=== PATIENT | female | born 1990 ===

== ENCOUNTER 2024-10-19 23:17 | Emergency (ER) | payer OTHER ==
[~2024-10-19] VITALS: Ht 162.6 cm; Wt 59.4 kg
[2024-10-19] MEDS ORDERED: PRENATAL MULTI1 EAC5 (23:42)
[2024-10-19 23:43] LABS: BASOPHILS 0.7 % (0-2); EOSINOPHILS 0.1 % (0-6); HEMATOCRIT 36.8 % (35.0-50.0); HEMOGLOBIN 12.6 g/dL (12.0-18.0); LYMPHOCYTES 15.8 % (24-44); MCH 30.4 (27-36); MCHC 34.3 g/dl (30-36); MCV 88.7 fl (81-99); MONOCYTES 8.4 % (0-12); PLATELET COUNT 140 K/uL (140-440); RBC 4.15 M/ul (4.3-5.7); RDW 12.7 (10.5-15.0)
[2024-10-19] MEDS ORDERED: SODIUM CHLORIDE 0.9% 1,000 ML IV ONE (23:45)
[2024-10-20 00:01] LABS: ALBUMIN 4.1 g/dL (3.4-5.0); ALBUMIN/GLOBULIN RATIO 1.14 (1.1-2.4); ANION GAP 13.4 (7-21); BILIRUBIN, TOTAL 0.4 mg/dL (0.2-1.0); CALCIUM 8.9 mg/dL (8.5-10.1); CREATININE, SERUM 0.75 mg/dL (0.55-1.02); MAGNESIUM 1.6 mg/dL (1.8-2.4); POTASSIUM 3.4 mmol/L (3.5-5.1); PROTEIN, TOTAL 7.7 g/dL (6.4-8.2)
[2024-10-20] MEDS ORDERED: CYCLOBENZAPRINE10 MG PO ×2 (00:30→01:57)
[2024-10-20] MEDS ORDERED: MAGNESIUM SULFATE 2 GM/50 ML BAG IV ONE (00:30)
[2024-10-20] MEDS ORDERED: CYCLOBENZAPRINE HCL 10 MG HOME.PACK PO ONE (00:45)
[2024-10-20] MEDS ORDERED: ONDANSETRON 4 MG HOME.PACK SL ONE (01:15)
[2024-10-20 01:55] VITALS: BP 106/68
--- NOTE | 2024-10-20 11:52 | EKG ---
[facility] [address] [facility] [place] [address] Signed Sinus tachycardia Low voltage QRS Borderline ECG No previous ECGs available Confirmed by Dontrell Melissa MD ([id number]) on 10/20/2024 11:52:19 AM Electronically Signed By: DONTRELL MELISSA MD 10/20/24 1152 PATIENT NAME: ANTHONY COHEN Electrocardiogram DATE OF : [birth year] PHYSICIAN: DONTRELL MELISSA MD REPORT #: [id number] REPORT IS CONFIDENTIAL AND NOT TO BE RELEASED WITHOUT AUTHORIZATION
== END 2024-10-20 01:53 | disposition home or self-care (01) ==
LOC: ED 23:17
PROVIDERS: Family Medicine
DX: J10.1 Influenza due to other identified influenza virus with other respiratory manifestations (principal)
CPT/HCPCS: 36415; 80053; 83735; 84484; 84702; 85025; 93005; 93010; 96361; 96365; 99285-25; A9270; J3475; J7030